=== PATIENT | male | born 1990 | race Caucasian/White ===

== ENCOUNTER 2018-02-13 18:20 | Emergency (ER) | payer OTHER ==
[~2018-02-13] VITALS: Ht 162.6 cm; Wt 68.0 kg
[2018-02-13 18:34] VITALS: Ht 162.6 cm; Wt 68.0 kg
[2018-02-13 20:06] VITALS: BP 128/91
== END 2018-02-13 20:06 | disposition home or self-care (01) ==
LOC: ED 18:20
DX: K12.0 Recurrent oral aphthae (principal); R03.0 Elevated blood-pressure reading, without diagnosis of hypertension; J45.909 Unspecified asthma, uncomplicated; Z88.0 Allergy status to penicillin; Z88.2 Allergy status to sulfonamides

== ENCOUNTER 2018-02-25 18:38 | Emergency (ER) | payer OTHER ==
[~2018-02-25] VITALS: Ht 162.6 cm; Wt 68.5 kg
[2018-02-25 18:45] VITALS: Ht 162.6 cm; Wt 68.5 kg
[2018-02-25 19:51] VITALS: BP 136/70
== END 2018-02-25 19:51 | disposition home or self-care (01) ==
LOC: ED 18:38
DX: S63.502A Unspecified sprain of left wrist, initial encounter (principal); Z88.0 Allergy status to penicillin; Z88.2 Allergy status to sulfonamides; W01.0XXA Fall on same level from slipping, tripping and stumbling without subsequent striking against object, initial encounter; Y93.89 Activity, other specified; Y92.89 Other specified places as the place of occurrence of the external cause; Y99.8 Other external cause status
CPT/HCPCS: Q0092

== ENCOUNTER 2018-03-10 14:46 | Emergency (ER) | payer OTHER ==
[~2018-03-10] VITALS: Ht 165.1 cm; Wt 68.9 kg
[2018-03-10 14:55] VITALS: Ht 165.1 cm; Wt 68.9 kg
[2018-03-10 17:49] VITALS: BP 128/86
== END 2018-03-10 17:49 | disposition home or self-care (01) ==
LOC: ED 14:46
DX: K12.0 Recurrent oral aphthae (principal); J45.909 Unspecified asthma, uncomplicated; Z88.0 Allergy status to penicillin; Z88.2 Allergy status to sulfonamides